=== PATIENT | female | born 1975 | race Caucasian/White ===

== ENCOUNTER 2022-05-29 15:30 | Outpatient (CLI) | payer BC, SELFPAY ==
--- NOTE | 2022-05-29 15:39 | ECG_ITS ---
Measurements Intervals [place] Rate: 64 P: 10 FL: 103 QRS: 87 QRSD: 95 T: 53 QT: 416 QTc: 430 Interpretive Statements SINUS RHYTHM WITH SHORT FL INTERVAL BORDERLINE ECG NO PREVIOUS ECG AVAILABLE FOR COMPARISON Electronically Signed On 05-29-2022 15:56:54 CDT by Elan Chacon D.O.
== END 2022-05-29 15:31 | disposition home or self-care (01) ==
LOC: ANHSURGERY 15:35
PROVIDERS: Visit Provider Obstetrics & Gynecology
DX: Z01.818 Encounter for other preprocedural examination (principal); F17.210 Nicotine dependence, cigarettes, uncomplicated
CPT/HCPCS: 93005

== ENCOUNTER 2022-05-31 01:01 | Day surgery (SDC) | payer BC, SELFPAY ==
--- NOTE | 2022-05-28 07:35 | PM.IMHP ---
H&P: HPI History of Present Illness Date/Time: 05/28/22 07:35 Chief Complaint: Desires sterilization Narrative: This is a 46-year-old female was admitted for laparoscopic tubal ligation secondary to desired permanent sterilization. Risks and benefits reviewed in great detail. Failure rate of 09/999 was reviewed. Risks and benefits including not exclusive of , aspiration pneumonia, bleeding, transfusion, perforation injury to bowel, bladder, ureters, or other internal organs with the need for open laparotomy. She received the [employer] handout entitled sterilization for men and women. She had all questions answered. She asked to proceed Exam Const: General: cooperative, healthy appearing and comfortable Nutritional Appearance: average body habitus Orientation/consciousness: oriented to person, oriented to place and oriented to time Resp: Effort & Inspection: normal respiratory effort Cardio: Rate: regular rate Rhythm: regular rhythm Heart sounds: S1 normal heart sound present and S2 normal heart sound present GI: Inspection: normal to inspection : External Female Exam: normal external appearance Speculum Exam - Vagina: normal appearance of the vagina Speculum Exam - Cervix: normal appearance of the cervix Bimanual exam- vagina & uterus: uterine size normal Bimanual Exam- Adnexa, other: normal adnexae Assessment and Plan Assessment and plan (1) Sterilization: Code(s): Z30.2 - Encounter for sterilization Status: Acute Plan Laparoscopic bilateral tubal ligation
[2022-05-28 12:06] VITALS: BMI 20.7
--- NOTE | 2022-05-28 12:12 | PC.NURSE ---
Report to the Outpatient Waiting Room, entrance under the green pavilion located off [facility], at time 10:00 on date 05/31/22. Planned Procedure Time: 12:00. Time changes happen often and if your time is changed the preop area will call you the afternoon before. - You and your visitor will be asked to self-screen and do not enter if you have any COVID symptoms. - We encourage only one visitor and NO visitors under age 16 are allowed at this time. Your visitor will receive communication by the phone number that is given day of service. - The patient visitor is requested to social distance or may leave the building when not with patient due to restrictions. - A mask is OPTIONAL within the hospital. Patients may have clear liquids (water, carbonated beverages, clear teas, apple juice) until 3 hours prior to surgery (9:00) with a maximum of 20 ounces. - No food from midnight until time of surgery Take the following medications with a SIP of water the morning of surgery: CITALOPRAM, LEVOTHYROXINE, METOPROLOL Medications to discontinue per physician: VITAMINS/SUPPLEMENTS Date to take last dose: NO MORE UNTIL AFTER SURGERY Please no make-up, nail nigerian, hairspray, perfume, deodorant, or body powder the day of surgery. No jewelry (including any body piercings) or valuables the day of surgery, leave them at home. Please take a shower or bath the night before, or the morning of, surgery with an antibacterial soap. Wear comfortable, loose fitting clothing. - Jewelry must be removed prior to entering the operating room. Rings and piercings that are not removed may be cut off. - The hospital will not accept responsibility for valuables. - Please leave all valuables, including medications, at home the day of surgery. If you are going home after surgery, a licensed hook up driver must drive you home. - NO public transportation without another adult. - We recommend that an adult stay with you for 24 hours following discharge. - We also recommend that you do not drive, make important decision, drink alcoholic beverages, or take any drugs that were not prescribed by your health care provider for at least 24 hours after your discharge time. Follow any additional instructions given to you from your surgeon. If you or anyone in your household have experienced Covid symptoms in the past week, please notify your surgeon or the nurse liaison at the phone number below for possible testing. Telephone instructions given to PT - VINCENT OREILLY and asked if any additional questions and then verbalized understanding. Patient advised to call surgeon office or pre surgery nurse liaison [phone] if any additional questions.
[2022-05-31] VITALS (9 sets, daily range): BP systolic 92–122; BP diastolic 49–69; PULSE 46–73; RESP 10–16; TEMP 36.2–36.9; O2SAT 97–100; BMI 20.7
--- NOTE | 2022-05-31 06:08 | WPDHPUPDATE1 ---
History and Physical Update Update Date/Time: 05/31/22 06:08 History and Physical has been reviewed, including an updated exam of the patient. There are NO changes in the patient's condition. Risks, benefits, and alternatives have been discussed and questions answered. Patient agrees to proceed with procedure.
[2022-05-31] MEDS: LACTATED RINGERS 1,000 ML 30 ML IV CONT ×2 (11:10→13:39)
--- NOTE | 2022-05-31 11:13 | P.PNAN_ITS ---
Anes - Initial Pre Proc Eval Procedure: Operation Date: 05/31/22 12:00 Proposed Procedures p Laparoscopic Bilateral Tubal Sterilization with Fallopian Rings - Garry Villaseñor MD Date/Time: 05/31/22 11:13 Surgeon: Garry Villaseñor MD Pre Op Diagnosis: josie mckeon Patient Data Age: 46 Gender: F Height: 1.75 m Weight: 63.5 kg Allergies Allergy/AdvReac Type Severity Reaction Status Date / Time No Known Allergies Allergy Verified 05/28/22 12:05 Home Medications Medication Instructions Recorded Confirmed Type citalopram 20 mg tablet 30 mg PO DAILY 05/28/22 05/28/22 History levothyroxine 50 mcg tablet 50 mcg PO DAILY 05/28/22 05/28/22 History metoprolol succinate 25 mg 12.5 mg PO BID 05/28/22 05/28/22 History tablet,extended release 24 hr multivitamin 1 tablet PO DAILY 05/28/22 05/28/22 History hydrocodone 5 mg-acetaminophen 325 1 tablet PO Q4H PRN pain #30 tabs 05/31/22 Rx mg tablet Patient hx anesthesia problems: none and other (motion sickness) Family hx anesthesia problems: none Results Review: All pre-operative results and documents have been reviewed as part of the pre- operative evaluation. [facility] Past Medical History Medical History Anxiety Yelena's thyroiditis Social History Social History Smoking packs per day: 1 Smoking cigarettes per day: 20.0 Years smoked: 30 Smoking pack-years: 30.00 Smoking status: Current every day smoker Tobacco type: cigarettes Alcohol intake: current Drinks per week: 6 Substance use: current Substance use type: marijuana Living arrangements: with family Spiritual care concerns: No Anes - Eval Final PreProcedure Day of Procedure 05/31/22 11:13 Patient weight: normal Heart: regular rate and rhythm Lungs: decreased breath sounds Airway: Mallampati scale class 1 Neurological: alert and oriented Last oral intake: >/= 8 hours ASA classification: III Emergent: no Anesthetic plan: proceed Anesthesia type and monitoring: general ETT and standard monitoring Results Review: All pre-operative results and documents have been reviewed as part of the pre- operative evaluation. Informed Consent: The patient's anesthetic plan and its attendant risks and benefits were discussed with the patient/family/POA. Questions were solicited and answers provided to the satisfaction of the patient/family/POA.
[2022-05-31] MEDS: ACETAMINOPHEN 500 MG TABLET 1000 MG PO (11:18)
[2022-05-31] MEDS: KETOROLAC 15 MG/ML VIAL (*BKC) IV PUSH (11:20)
[2022-05-31] MEDS: SCOPOLAMINE 1.5 MG PATCH TRANSDERM (11:24)
--- NOTE | 2022-05-31 13:26 | W.PM.PROC2 ---
Procedure Note - Detailed Date of Procedure 05/31/22 Pre-op Diagnosis desires sterilizaton Post-op Diagnosis Same Procedure Performed Laparoscopic bilateral tubal ligation with silastic bands Surgeon Garry Villaseñor MD Anesthesia General Indications this is a 46-year-old female who desires permanent irreversible sterilization Findings normal-appearing ovaries uterus and tubes. Left tube was somewhat adherent to left lateral sidewall Description of Procedure patient was prepped draped in normal sterile fashion placed in the dorsal lithotomy position. Under excellent seizure weighted speculum placed posterior fornix vagina. Anterior lip of the cervix grasped with single-tooth tenaculum and the Gandara's cannula inserted to the cervix. This was attached to the single-tooth to be used later for uterine manipulation. The bladder drained of clear urine the weighted speculum removed. Gloves were changed An infraumbilical incision made the Veress needle passed abdomen abdomen filled with CO2 gas [id number]. The 5mm trocar advanced under direct visualization with the Optiview and no injury seen. Gas reattached patient placed in Trendelenburg and a suprapubic incision made with the 8mm trocar followed by sharp dissection and entered without to injury. The pelvis was visualized and there were no gross abnormalities. The right fallopian tube was grasped and a good knuckle of tube formed its midportion with excellent blanching. Left fallopian tube was then grasped and a good knuckle of tube formed with excellent blanching. Photo documentation was undertaken. The appendix gallbladder and liver edge all appeared within normal limits and photo documentation was undertaken. No other abnormalities were seen the lower site removed the gas removed from the abdomen. The upper site removed the incisions closed with 4 Monocryl and glue. Instruments removed from the vagina and the patient went to recovery in satisfactory condition. All sponge, needle, instrument counts were correct. There were no immediate complications Implants bilateral silastic bands Estimated Blood Loss 5 Drains No Packing No Pathology None sent Complications No immediate complications Condition Stable Disposition PACU
[2022-05-31] MEDS: fentaNYL CITRATE INJ (*CRX) 100 MCG/2 ML VIAL 25 MCG IV PUSH ×4 (13:56→14:34)
--- NOTE | 2022-05-31 14:22 | SUR.PHASEI ---
1216: Simple mask removed.
[2022-05-31] MEDS: oxyCODONE HCL (*CRX) 5 MG TAB IR PO (15:15)
== END 2022-05-31 15:45 | disposition home or self-care (01) ==
PROVIDERS: Visit Provider Obstetrics & Gynecology
PROC: (CPT 58671; principal; 2022-05-31 12:00)
DX: Z30.2 Encounter for sterilization (principal)
CPT/HCPCS: 58671; A4264; A9270; J1100; J1885; J2250; J2405; J2704; J2710; J3010; J7120